=== PATIENT | female | born 1960 | race Two or more races ===

== ENCOUNTER 2018-09-13 00:23 | Emergency (ER) | payer MEDICAID ==
[~2018-09-13] VITALS: Ht 165.1 cm; Wt 63.5 kg
--- NOTE | 2018-09-13 01:33 | NUR ---
Patient discharged to home in stable conditon. Written and verbal after care instructions given. Patient verbalizes understanding of instructions. WALKED OUT OF ERWITH NO DISTRESS NOTED
[2018-09-13 01:34] VITALS: BP 135/66
== END 2018-09-13 01:35 | disposition home or self-care (01) ==
LOC: ER 00:34
DX: M25.522 Pain in left elbow (principal); F41.9 Anxiety disorder, unspecified; F31.9 Bipolar disorder, unspecified; F17.200 Nicotine dependence, unspecified, uncomplicated
CPT/HCPCS: 73080; A4663

== ENCOUNTER 2018-12-08 03:04 | Emergency (ER) | payer MEDICAID ==
[~2018-12-08] VITALS: Ht 165.1 cm; Wt 68.0 kg
--- NOTE | 2018-12-08 03:23 | NUR ---
DR. CAMACHO AT BEDSIDE FOR MSE.
[2018-12-08] MEDS: SULFAMETH/TRIMETH 800/160 MG TABLET PO ONE (03:32)
--- NOTE | 2018-12-08 03:33 | NUR ---
Patient discharged to home in stable conditon. Written and verbal after care instructions given. Patient verbalizes understanding of instructions. PATIENT LEFT WITH STABLE GAIT.
[2018-12-08] MEDS ORDERED: SULFAMETH/TRIMETH 800/160 MG TABLET ONE (03:35)
[2018-12-08 03:42] VITALS: BP 108/71
== END 2018-12-08 03:43 | disposition home or self-care (01) ==
LOC: ER 03:09
DX: L03.115 Cellulitis of right lower limb (principal); L02.415 Cutaneous abscess of right lower limb; F41.9 Anxiety disorder, unspecified; F32.9 Major depressive disorder, single episode, unspecified; F17.200 Nicotine dependence, unspecified, uncomplicated
CPT/HCPCS: A4663

== ENCOUNTER 2019-02-18 03:39 | Emergency (ER) | payer MEDICAID ==
[~2019-02-18] VITALS: Ht 165.1 cm; Wt 65.8 kg
--- NOTE | 2019-02-18 03:50 | NUR ---
Patient c/o coughing yellow phlem with intermitten SOB for 2 months.
[2019-02-18 04:06] LABS: *BILIRUBIN,URIN NEGATIVE (NEGATIVE); *BLOOD, URINE NEGATIVE (NEGATIVE); *CLARITY,URINE CLEAR (CLEAR); *COLOR,URINE YELLOW (YELLOW); *KETONES,URINE NEGATIVE (NEGATIVE); *UROBILINOGEN,URINE 0.2 E.U./dl (NORMAL); LEUKOCYTE ESTERASE ,URINE NEGATIVE (NEGATIVE); NITRITE, URINE NEGATIVE (NEGATIVE); UGLUCOSE NEGATIVE (NEGATIVE)
[2019-02-18] MEDS ORDERED: ALBUTEROL SULFATE 2.5 MG/3 ML NEBU NEB ONE (04:15)
[2019-02-18] MEDS ORDERED: IPRATROPIUM BROMIDE 0.5 MG/2.5 ML NEBU NEB ONE (04:15)
[2019-02-18] MEDS ORDERED: IPRATROPIUM BROMIDE 0.5 MG/2.5 ML NEBU ONE (04:23)
[2019-02-18] MEDS ORDERED: ALBUTEROL SULFATE 2.5 MG/3 ML NEBU ONE (04:23)
[2019-02-18] MEDS ORDERED: predniSONE 10 MG TABLET ONE (04:29)
[2019-02-18] MEDS ORDERED: predniSONE 50 MG TABLET ONE (04:29)
[2019-02-18] MEDS ORDERED: predniSONE 20 MG TABLET PO ONE (04:30)
--- NOTE | 2019-02-18 05:46 | NUR ---
Patient does not wish to proceed with medical care recommended by (Josep ). Patient given information related to possible complications, up to and including , which could occur as a result of leaving the hospital at this time. Patient verbalizes understanding of risks involved due to leaving against medical advice. Patient has signed AMA form.
[2019-02-18 05:48] VITALS: BP 135/70
== END 2019-02-18 05:53 | disposition left against medical advice (07) ==
LOC: ER 03:44
DX: J98.01 Acute bronchospasm (principal); F17.200 Nicotine dependence, unspecified, uncomplicated
CPT/HCPCS: 71046; 81001; 93005; 94644; 99285; J7512 ×2; A4663; J3590

== ENCOUNTER 2021-06-01 23:52 | Emergency (ER) | payer MEDICAID ==
[~2021-06-01] VITALS: Ht 162.6 cm; Wt 61.2 kg
--- NOTE | 2021-06-02 00:09 | NUR ---
Came in ambulatory c/o worsening cough. To room 2B.
--- NOTE | 2021-06-02 00:26 | NUR ---
Seen and evaluated by Dr. Car.
[2021-06-02] MEDS ORDERED: predniSONE 20 MG TABLET PO ONE (00:30)
[2021-06-02] MEDS ORDERED: ALBUTEROL SULFATE 2.5 MG/3 ML NEBU NEB ONE ×2 (00:30→01:15)
[2021-06-02] MEDS: IPRATROPIUM BROMIDE 0.5 MG/2.5 ML NEBU NEB ONE ×5 (00:33→01:50)
--- NOTE | 2021-06-02 00:35 | NUR ---
PCXR done. COVID test done and sent to lab.
[2021-06-02] MEDS ORDERED: IPRATROPIUM BROMIDE 0.5 MG/2.5 ML NEBU ONE ×3 (00:42→01:46)
[2021-06-02] MEDS ORDERED: ALBUTEROL SULFATE 2.5 MG/ 0.5 ML NEBU ONE (00:42)
[2021-06-02] MEDS ORDERED: predniSONE 50 MG TABLET ONE (00:42)
[2021-06-02] MEDS ORDERED: predniSONE 10 MG TABLET ONE (00:43)
--- NOTE | 2021-06-02 00:45 | NUR ---
Breathing treatment given by RT.
[2021-06-02] MEDS: ALBUTEROL SULFATE 2.5 MG/3 ML NEBU NEB ONE ×2 (01:07→01:50)
[2021-06-02] MEDS ORDERED: ALBUTEROL SULFATE 2.5 MG/3 ML NEBU ONE ×2 (01:28→01:46)
[2021-06-02] MEDS ORDERED: BENZ-13 PO (03:16)
[2021-06-02] MEDS ORDERED: PRED50TA PO (03:16)
[2021-06-02 03:19] VITALS: BP 140/88
--- NOTE | 2021-06-02 03:19 | NUR ---
Patient discharged to home in stable condition. Written and verbal after care instructions given. Patient verbalizes understanding of instructions. Stressed follow up or return to ER for worsening s/s.
== END 2021-06-02 03:20 | disposition home or self-care (01) ==
LOC: ER 23:54
DX: J44.1 Chronic obstructive pulmonary disease with (acute) exacerbation (principal); Z20.822 Contact with and (suspected) exposure to COVID-19; Z86.69 Personal history of other diseases of the nervous system and sense organs; F31.9 Bipolar disorder, unspecified; F17.210 Nicotine dependence, cigarettes, uncomplicated
CPT/HCPCS: 71046; 87426; 93005; 94640 ×3; 99285; J7512 ×2; A4663; J3590

== ENCOUNTER 2024-10-26 02:00 | Emergency (ER) | payer MEDICAID, OTHER ==
[~2024-10-26] VITALS: Ht 162.6 cm; Wt 63.5 kg
[~2024-10-26 02:00] MED LIST: BENZ-13 PO; PRED50TA PO
[2024-10-26 03:37] VITALS: BP 109/72; O2SAT 93
[2024-10-26] MEDS ORDERED: CLIN300C12 PO (04:09)
[2024-10-26] MEDS: CLINDAMYCIN PHOSPHATE 600 MG/4 ML VIAL IM ONE (04:13)
[2024-10-26] MEDS ORDERED: CLINDAMYCIN HCL 300 MG CAPSULE ONE (04:15)
[2024-10-26] MEDS: CLINDAMYCIN HCL 150 MG CAPSULE PO ONE (04:19)
[2024-10-28] MEDS ORDERED: LISI10TA29 MT (05:44)
[2024-10-28] MEDS ORDERED: LEVE500T9 PO (05:44)
== END 2024-10-26 04:20 | disposition left against medical advice (07) ==
LOC: ER 02:23
DX: L03.113 Cellulitis of right upper limb (principal); F17.210 Nicotine dependence, cigarettes, uncomplicated; F31.9 Bipolar disorder, unspecified; Z79.52 Long term (current) use of systemic steroids; Z88.7 Allergy status to serum and vaccine; Z86.69 Personal history of other diseases of the nervous system and sense organs; Z87.39 Personal history of other diseases of the musculoskeletal system and connective tissue
CPT/HCPCS: A4606; A4663